=== PATIENT | female | born 1975 ===

== ENCOUNTER 2016-12-21 14:28 | Emergency (ER) | payer MEDICARE, OTHER ==
[2016-12-21 14:28] VITALS: BMI 27.4
[2016-12-21 14:39] VITALS: BP 108/47; PULSE 85; RESP 18; TEMP 97.8; O2SAT 100
[2016-12-21] MEDS ORDERED: Sodium Chloride 0.9% 1,000 ML IV STA (15:13)
--- NOTE | 2016-12-21 15:25 | ED PDOC ---
HPI: Abdomen Time Seen by Provider: 12/21/16 14:43 Chief Complaint (Nursing): Abdominal Pain Chief Complaint (Provider): Abdominal Pain History Per: Patient History/Exam Limitations: no limitations Onset/Duration Of Symptoms: Days (approximately 3-4 days) Outside of [place] travel?: No Current Symptoms Are (Timing): Still Present Severity: Moderate Location Of Pain/Discomfort: Diffuse Associated Symptoms: Chills, Nausea, Urinary Symptoms (dysuria and urinary frequency), Other (b/l knee pain and headache). denies: Fever, Vomiting, Back Pain Additional Complaint(s): Samantha Barajas is a 41 year old female, with a past medical history of urinary tract infections, who presents to the emergency department with diffuse abdominal pain, that the patient has been experiencing for approximately 3-4 days. Patient reports that she fell yesterday, landing on both of her knees, which she believes may have caused an injury. She states that she has not taken any medications for her symptoms to alleviate the pain. Associated nausea, dysuria, urinary frequency, chills, and a headache are currently present. Denies a fever, vomiting, or back pain. Of note, patient is allergic to Penicillin. PMD: Dr. Henao Past Medical History Reviewed: Historical Data, Nursing Documentation, Vital Signs Vital Signs: Last Vital Signs Temp 97.8 F 12/21/16 14:35 Pulse 85 12/21/16 14:35 Resp 18 12/21/16 14:35 BP 108/47 L 12/21/16 14:35 Pulse Ox 100 12/21/16 15:47 - Medical History PMH: Arthritis, Rheumatoid Arthritis Other PMH: Urinary Tract Infection - Surgical History Surgical History: (x3) Other surgeries: Ankle Surgery, L Hip Replacement - Family History Family History: States: No Known Family Hx - Social History Current smoker - smoking cessation education provided: No Ex-Smoker (has not smoked in the last 12 months): No Alcohol: Occasional - Immunization History Hx Tetanus Toxoid Vaccination: No Hx Influenza Vaccination: Yes Hx Pneumococcal Vaccination: No - Home Medications Home Medications: Ambulatory Orders Medication Instructions Recorded Hydroxychloroquine Sulfate 200 mg PO BID 04/05/16 [Plaquenil] Ciprofloxacin HCl [Cipro] 500 mg PO BID #14 tab 07/19/16 Naproxen [Naprosyn] 500 mg PO Q12 PRN #14 tablet 07/19/16 Nitrofurantoin Macrocrystals 100 mg PO BID #20 tab 10/09/16 [Macrobid] Phenazopyridine HCl [Pyridium] 100 mg PO TID #9 tab 12/21/16 Sulfamethoxazole/Trimethoprim 1 tab PO BID #6 tab 12/21/16 [Bactrim DS 800 mg-160 mg] - Allergies Allergies/Adverse Reactions: Allergies Allergy/AdvReac Type Severity Reaction Status Date / Time amoxicillin trihydrate AdvReac RASH Verified 09/04/16 14:05 [From Augmentin] potassium clavulanate AdvReac RASH Verified 09/04/16 14:05 [From Augmentin] Review of Systems ROS Statement: Except As Marked, All Systems Reviewed And Found Negative Constitutional: Positive for: Chills. Negative for: Fever Gastrointestinal: Positive for: Nausea, Abdominal Pain. Negative for: Vomiting Genitourinary Female: Positive for: Dysuria, Frequency Musculoskeletal: Positive for: Leg Pain (b/l knee pain). Negative for: Back Pain Neurological: Positive for: Headache Physical Exam - Reviewed Nursing Documentation Reviewed: Yes Vital Signs Reviewed: Yes - Physical Exam Appears: Positive for: Non-toxic, No Acute Distress Head Exam: Positive for: ATRAUMATIC, NORMOCEPHALIC Skin: Positive for: Normal Color, Warm, Dry Eye Exam: Positive for: Normal appearance, EOMI ENT: Positive for: Normal ENT Inspection, Other (moist mucous membranes). Negative for: Pharyngeal Erythema, Tonsillar Exudate Neck: Positive for: Normal, Painless ROM Cardiovascular/Chest: Positive for: Regular Rate, Rhythm. Negative for: Murmur Respiratory: Positive for: Normal Breath Sounds. Negative for: Respiratory Distress Gastrointestinal/Abdominal: Positive for: Normal Exam, Soft, Tenderness ( diffuse abdominal tenderness bilaterally). Negative for: Mass, Guarding, Rebound Extremity: Positive for: Normal ROM (full range of motion of knees), Other (b/l knee pain w/ mild erythematous symptoms in insertion of patellar tendors) Neurologic/Psych: Positive for: Alert, Oriented - Laboratory Results Result Diagrams: 12/21/16 16:00 - ECG O2 Sat by Pulse Oximetry: 100 (RA) Pulse Ox Interpretation: Normal Medical Decision Making Medical Decision Makin:43 Initial Impression: Abdominal pain r/o UTI and knee pain contusions Initial Plan: * Knee X-Ray * CBC * CMP * Urine * Urinalysis * Sodium Chloride 0.9% 1,000 ml IV at 1,000 mls/hr * Toradol 30 mg IVP * Reevaluation Scribe Attestation: Documented by Manav Pinto, acting as a scribe for Charla Joshua MD. Provider Scribe Attestation: All medical record entries made by the Scribe were at my direction and personally dictated by me. I have reviewed the chart and agree that the record accurately reflects my personal performance of the history, physical exam, medical decision making, and the department course for this patient. I have also personally directed, reviewed, and agree with the discharge instructions and disposition. Disposition - Clinical Impression Clinical Impression: Dysuria - Patient ED Disposition Is Patient to be Admitted: No Doctor Will See Patient In The: Office Counseled Patient/Family Regarding: Diagnosis, Need For Followup, Rx Given - Disposition Referrals: Earlene Fernandes MD [Family Provider] - Disposition: Routine/Home Disposition Time: 16:47 Condition: STABLE Prescriptions: Phenazopyridine HCl [Pyridium] 100 mg PO TID #9 tab Sulfamethoxazole/Trimethoprim [Bactrim DS 800 mg-160 mg] 1 tab PO BID #6 tab Instructions: Dysuria (ED), Knee Pain (ED) - POA Present On Arrival: Falls Or Trauma
[2016-12-21 15:53] LABS: RBC URINE 7 /hpf (0-3); URINE BACTERIA OCC (<OCC); URINE BILIRUBIN NEGATIVE (NEGATIVE); URINE BLOOD NEGATIVE (NEGATIVE); URINE COLOR YELLOW (YELLOW); URINE GLUCOSE (UA) NEG (Normal); URINE KETONE TRACE mg/dL (NEGATIVE); URINE LEUKOCYTE ESTERASE NEG Leu/uL (Negative); URINE PROTEIN NEGATIVE (NEGATIVE); URINE UROBILINOGEN 0.2-1.0 mg/dL (0.2-1.0); WBC URINE 1 /hpf (0-5)
[2016-12-21 16:10] LABS: BASO # 0.1 K/uL (0.0-0.2); EOS # 0.1 K/uL (0.0-0.7); EOS % 2.2 % (0.0-4.0); HEMATOCRIT 37.7 % (34.0-47.0); LYMPH # 1.6 K/uL (1.0-4.3); LYMPH % 27.7 % (20.0-40.0); MEAN CELL VOLUME 96.3 fl (81.0-99.0); MEAN CORPUSCULAR HEMOGLOBIN 33.4 pg (27.0-31.0); MEAN CORPUSCULAR HGB CONC 34.6 g/dL (33.0-37.0); MEAN PLATELET VOLUME 8.5 fl (7.2-11.7); MONO # 0.3 K/uL (0.0-0.8); MONO % 5.7 % (0.0-10.0); NEUT # 3.6 K/uL (1.8-7.0); NEUT % 63.4 % (50.0-75.0); NRBC % 0.1 % (0.0-0.0); RED CELL DISTRIBUTION WIDTH 12.7 % (11.5-14.5); WHITE BLOOD COUNT 5.7 K/uL (4.8-10.8)
[2016-12-21 16:42] LABS: ALB/GLOB RATIO 1.3 (1.0-2.1); ALKALINE PHOSPHATASE 71 U/L (38-126); ALT/SGPT 33 U/L (9-52); AST/SGOT 31 U/L (14-36); BILIRUBIN,TOTAL 1.9 mg/dl (0.2-1.3); BLOOD UREA NITROGEN 14 mg/dl (7-17); CALCIUM 9.4 mg/dL (8.4-10.2); CARBON DIOXIDE 26 mmol/L (22-30); CHLORIDE 104 mmol/L (98-107); GFR AFRICAN-AMERICAN > 60; GLUCOSE,RANDOM 93 mg/dL (65-105); POTASSIUM 3.6 MMOL/L (3.6-5.0); SODIUM 141 mmol/l (132-148); TOTAL PROTEIN 8.1 G/DL (6.3-8.2)
--- NOTE | 2016-12-21 18:20 | RAD ---
PROCEDURE: Bilateral Knee Radiographs dated 12/21/2016. AP lateral and sunrise views of the left and right knees performed. HISTORY: Status post fall yesterday FINDINGS: Right knee findings: The current study reveals no evidence of acute displaced fracture nor dislocation. The osseous structures intact. . No cortical destructive changes. There is mild medial joint space narrowing with small marginal medial osteophyte formation. Slight to the spurring of the tibial spines Tiny early marginal lateral osteophyte formation. . Small posterior patellar osteophytes also noted. No significant joint effusion. Left knee findings: No acute displaced fracture nor dislocation. Osseous structures intact. Joint space is relatively preserved. No significant joint effusion. Impression: No evidence of acute displaced fracture nor dislocation. Mild DJD right knee.
== END 2016-12-21 17:05 | disposition home or self-care (01) ==
LOC: H.ER 14:28
DX: N39.0 Urinary tract infection, site not specified (principal); R30.0 Dysuria; R11.0 Nausea; Z88.0 Allergy status to penicillin; Z96.642 Presence of left artificial hip joint; M06.9 Rheumatoid arthritis, unspecified; M25.569 Pain in unspecified knee; R51 Headache
CPT/HCPCS: 73562; 80053; 81003; 81025; 85025; 96361; 96374; 99283; J1885; J7040

== ENCOUNTER 2017-09-13 11:40 | Emergency (ER) | payer MEDICARE, OTHER ==
[2017-09-13 12:47] VITALS: BMI 23.8
[2017-09-13] MEDS ORDERED: Sodium Chloride 0.9% 1,000 ML IV STA (12:48)
--- NOTE | 2017-09-13 12:58 | ED PDOC ---
HPI: General Adult Time Seen by Provider: 09/13/17 12:23 Chief Complaint (Provider): Generalized malaise, weakness, abdominal pain History Per: Patient History/Exam Limitations: no limitations Onset/Duration Of Symptoms: Days Have you had recent travel within the past 21 days to any of the following countries: [place], [place], [place] or [place]?: No Current Symptoms Are (Timing): Still Present Additional History Per: Patient Additional Complaint(s): 42yo female with history of lupus, arthritis, hypercholesterolemia, presents to ED for evaluation of abdominal pain, bodyaches, cough, shortness of breath, congestion for the past 3 days. Patient reports abdominal pain is diffuse and states she has pressure-like pain upon urination; denies any hematuria or burning sesnations. She also reports a b/l chest pain starting yesterday after doing a lot of cleaning using her hands; states for the past 2 days she has been cleaning surfaces and feels her chest pain may be related to this. She also reports feeling weak and dizzy but denies any headache, vision changes. She denies any leg pain, numbness, hormonal treatments or long distance travels. No other complaints. PCP: Dr. Henao Past Medical History Reviewed: Historical Data, Nursing Documentation, Vital Signs Vital Signs: Last Vital Signs Temp 98.3 F 09/13/17 11:58 Pulse 80 09/13/17 13:27 Resp 20 09/13/17 11:58 BP 95/71 L 09/13/17 11:58 Pulse Ox 97 09/13/17 13:02 - Medical History PMH: Arthritis, Hypercholesterolemia, Rheumatoid Arthritis - Surgical History Surgical History: (x3) - Family History Family History: States: Unknown Family Hx - Social History Current smoker - smoking cessation education provided: No Alcohol: None Drugs: Denies - Immunization History Hx Tetanus Toxoid Vaccination: No Hx Influenza Vaccination: Yes Hx Pneumococcal Vaccination: No - Home Medications Home Medications: Ambulatory Orders Medication Instructions Recorded Hydroxychloroquine Sulfate 200 mg PO BID 04/05/16 [Plaquenil] Benzonatate [Tessalon Perles] 100 mg PO BID PRN 5 Days sgl 09/13/17 Ibuprofen [Motrin] 600 mg PO TID 7 Days tab 09/13/17 Nitrofurantoin Macrocrystals 100 mg PO BID #10 cap 09/13/17 [Macrobid] - Allergies Allergies/Adverse Reactions: Allergies Allergy/AdvReac Type Severity Reaction Status Date / Time amoxicillin trihydrate AdvReac RASH Verified 09/04/16 14:05 [From Augmentin] potassium clavulanate AdvReac RASH Verified 09/04/16 14:05 [From Augmentin] Review of Systems ROS Statement: Except As Marked, All Systems Reviewed And Found Negative Constitutional: Positive for: Weakness, Malaise Eyes: Negative for: Vision Change ENT: Positive for: Nose Congestion Cardiovascular: Positive for: Chest Pain Respiratory: Positive for: Cough, Shortness of Breath, Sputum Gastrointestinal: Positive for: Abdominal Pain. Negative for: Nausea, Vomiting , Diarrhea Genitourinary Female: Negative for: Dysuria, Hematuria Neurological: Positive for: Dizziness. Negative for: Headache Physical Exam - Reviewed Nursing Documentation Reviewed: Yes Vital Signs Reviewed: Yes - Physical Exam Appears: Positive for: Non-toxic, No Acute Distress Head Exam: Positive for: ATRAUMATIC, NORMAL INSPECTION, NORMOCEPHALIC Skin: Positive for: Normal Color, Warm, Dry Eye Exam: Positive for: Normal appearance, EOMI, PERRL ENT: Positive for: Nasal Congestion. Negative for: Sinus Pain/Drainage, Pharyngeal Erythema Neck: Positive for: Normal, Painless ROM, Supple Cardiovascular/Chest: Positive for: Regular Rate, Rhythm. Negative for: Chest Non Tender (reproducibe bilateral chest-wall tednerness) Respiratory: Positive for: Normal Breath Sounds. Negative for: Wheezing Gastrointestinal/Abdominal: Positive for: Normal Exam, Bowel Sounds, Soft, Tenderness (diffuse mild tenderness) Back: Positive for: Normal Inspection. Negative for: L CVA Tenderness, R CVA Tenderness Extremity: Positive for: Normal ROM. 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 Negative for: Motor/Sensory Deficits, Aphasia, Facial Droop - Laboratory Results Result Diagrams: 09/13/17 12:10 09/13/17 12:10 Interpretation Of Abn Labs: urine wbc - ECG ECG: Positive for: Interpreted By Me ECG Rhythm: Positive for: Normal QRS, Normal ST Segment, Sinus Rhythm O2 Sat by Pulse Oximetry: 97 (RA) Pulse Ox Interpretation: Normal - Radiology X-Ray: Interpreted by Me, Viewed By Me X-Ray Interpretation: No Acute Disease - CT Scan/US ct Other Rad Studies (CT/US): Read By Radiologist Other Rad Interpretation: no acute - Progress ED Course And Treament: 1515: Stable. AAOx3. Pain free. Tolerated po. FU with pcp. Medical Decision Making Medical Decision Making: Impression: Flu-like symptoms, rule out UTI Plan: -- Chest x-ray -- Urinalysis -- CT Head w/o contrast -- Pepcid 20mg IVP -- Toradol 30mg IM -- IV Fluids -- Rapid flu Reassess Scribe Attestation: Documented by Paola Gaitan acting as a scribe for Misha Perkins MD. Provider Attestation: All medical record entries made by the Scribe were at my direction and personally dictated by me. I have reviewed the chart and agree that the record accurately reflects my personal performance of the history, physical exam, medical decision making, and the department course for this patient. I have also personally directed, reviewed, and agree with the discharge instructions and disposition. Disposition - Clinical Impression Clinical Impression: UTI (urinary tract infection), Dizziness, URI (upper respiratory infection) - Patient ED Disposition Is Patient to be Admitted: No Counseled Patient/Family Regarding: Studies Performed, Diagnosis, Need For Followup, Rx Given - Disposition [facility]errals: [facility] - 09/16/17 Disposition: Routine/Home Disposition Time: 15:15 Condition: STABLE Additional Instructions: Return if not better in 3 days. Prescriptions: Benzonatate [Tessalon Perles] 100 mg PO BID PRN 5 Days sgl PRN Reason: Cough Ibuprofen [Motrin] 600 mg PO TID 7 Days tab Nitrofurantoin Macrocrystals [Macrobid] 100 mg PO BID #10 cap Instructions: Upper Respiratory Infection (ED), Urinary Tract Infection in Women (ED), Dizziness (ED)
[2017-09-13 13:20] LABS: BASO % 0.4 % (0.0-2.0); EOS # 0.2 K/uL (0.0-0.7); EOS % 1.7 % (0.0-4.0); HEMOGLOBIN 13.4 g/dL (12.0-16.0); LYMPH # 1.8 K/uL (1.0-4.3); LYMPH % 19.1 % (20.0-40.0); MEAN CELL VOLUME 95.2 fl (81.0-99.0); MEAN CORPUSCULAR HEMOGLOBIN 33.6 pg (27.0-31.0); MEAN CORPUSCULAR HGB CONC 35.3 g/dL (33.0-37.0); MEAN PLATELET VOLUME 8.1 fl (7.2-11.7); MONO # 0.5 K/uL (0.0-0.8); NEUT % 73.8 % (50.0-75.0); RBC 3.98 Mil/uL (3.80-5.20); RED CELL DISTRIBUTION WIDTH 12.9 % (11.5-14.5); WHITE BLOOD COUNT 9.5 K/uL (4.8-10.8)
[2017-09-13 13:26] LABS: RENAL EPITHELIAL 3 /hpf (0-3); SQUAMOUS EPITHIAL 5 /hpf (0-5); URINE BACTERIA MANY (<OCC); URINE BILIRUBIN NEGATIVE (NEGATIVE); URINE BLOOD MODERATE (NEGATIVE); URINE CLARITY CLOUDY (Clear); URINE COLOR YELLOW (YELLOW); URINE GLUCOSE (UA) NEG (Normal); URINE LEUKOCYTE ESTERASE LARGE Leu/uL (Negative); URINE NITRATE POSITIVE (NEGATIVE); URINE PROTEIN 100 mg/dL (NEGATIVE); URINE UROBILINOGEN 0.2-1.0 mg/dL (0.2-1.0); WBC CLUMPS FEW /hpf
[2017-09-13 13:32] LABS: ALB/GLOB RATIO 1.1 (1.0-2.1); ALBUMIN 4.3 g/dL (3.5-5.0); ALT/SGPT 46 U/L (9-52); AST/SGOT 36 U/L (14-36); BLOOD UREA NITROGEN 14 mg/dl (7-17); CALCIUM 9.6 mg/dL (8.4-10.2); GFR AFRICAN-AMERICAN > 60; GFR NON-AFRICAN AMERICAN > 60; LIPASE 78 U/L (23-300)
[2017-09-13 13:47] LABS: PARTIAL THROMBOPLASTIN TIME 29.9 Seconds (25.6-37.1)
--- NOTE | 2017-09-13 14:52 | RAD ---
HISTORY: Dyspnea COMPARISON: 09/04/2016 TECHNIQUE: Chest PA and lateral FINDINGS: LUNGS: No active pulmonary disease. PLEURA: No significant pleural effusion identified. No pneumothorax apparent. CARDIOVASCULAR: No radiographic findings to suggest acute or significant cardiovascular disease. OSSEOUS STRUCTURES: No significant abnormalities. VISUALIZED UPPER ABDOMEN: Normal. OTHER FINDINGS: None. IMPRESSION: No active disease. No significant interval change compared to the prior examination(s). Concordant results with the preliminary interpretation rendered by the emergency department physician procedure.
--- NOTE | 2017-09-13 14:53 | CT ---
PROCEDURE: CT scan brain dated 09/13/2017 HISTORY: light-headed COMPARISON: None available. TECHNIQUE: Axial computed tomography images were obtained through the head/brain without intravenous contrast. Radiation dose: Total exam DLP = mGy-cm. This CT exam was performed using one or more of the following dose reduction techniques: Automated exposure control, adjustment of the mA and/or kV according to patient size, and/or use of iterative reconstruction technique. FINDINGS: HEMORRHAGE: No acute parenchymal, subarachnoid or extra-axial hemorrhage. BRAIN: No evidence large acute infarct. No obvious parenchymal nor extra-axial masses or collections seen on this noncontrast study Ventricular and sulcal size within range of normal for this patient's stated age. VENTRICLES: No obstructive hydrocephalus. CALVARIUM: Calvarium is intact. PARANASAL SINUSES: Unremarkable as visualized. No significant inflammatory changes. MASTOID AIR CELLS: Unremarkable as visualized. No inflammatory changes. OTHER FINDINGS: None. IMPRESSION: No acute intracranial hemorrhage.
[2017-09-13 16:00] VITALS: BP 114/78; PULSE 78; RESP 18; TEMP 98.2; O2SAT 99
--- NOTE | 2017-09-14 09:39 | CARD ---
APPROVED REPORT EKG Measurement Heart [id number] <Conclusion> Normal sinus rhythm Normal ECG
== END 2017-09-13 16:02 | disposition home or self-care (01) ==
LOC: H.ER 11:40
DX: J06.9 Acute upper respiratory infection, unspecified (principal); N39.0 Urinary tract infection, site not specified; E78.00 Pure hypercholesterolemia, unspecified; M06.9 Rheumatoid arthritis, unspecified; M32.9 Systemic lupus erythematosus, unspecified; Z88.0 Allergy status to penicillin
CPT/HCPCS: 70450; 71046; 80053; 81003; 81025; 83690; 84484; 85025; 85610; 85730; 87086; 87181; 87804; 93005; 96374; 96375; 99283; J1885; J7040

== ENCOUNTER 2017-09-26 21:45 | Emergency (ER) | payer MEDICARE, OTHER ==
[2017-09-26 21:45] VITALS: BMI 23.8
[2017-09-26 21:59] VITALS: BP 122/79; PULSE 96; RESP 18; TEMP 99.1; O2SAT 97
[2017-09-26] MEDS ORDERED: Albuterol 0.083% Inhal Sol (2.5 mg/3 mL) UD INH STA (22:02)
[2017-09-26] MEDS ORDERED: Albuterol-Ipratrop 3 mg / 0.5 (3 ml) UD INH STA ×2 (22:02→23:09)
--- NOTE | 2017-09-26 22:14 | ED PDOC ---
HPI: CCC, URI, Sore Throat Time Seen by Provider: 09/26/17 22:01 Chief Complaint (Nursing): Cough, Cold, Congestion Chief Complaint (Provider): Cough History Per: Patient History/Exam Limitations: no limitations Onset/Duration Of Symptoms: Days (x over 1 month) Current Symptoms Are (Timing): Still Present Additional Complaint(s): Patient is a 42 year old female presenting to the ER complaining of a cough since the end of Aug 2017. States cough is productive of clear phlegm. Seen here on 09/13 for it along with chest pain, and was diagnosed with a URI. Denies chest pain since then but states the cough persists. Saw parts cleaner on 09/24 for the same cough and was given Mucinex, Breo ellipta inhaler, and a z-pack which she will finish tomorrow. Persistence of cough prompted todays visit. No fever , nausea, vomiting, headache, abdominal pain, chest pain, palpitations, or lower leg swelling. LMP is now. PMD: Dr. Fernandes Past Medical History Reviewed: Historical Data, Nursing Documentation, Vital Signs Vital Signs: Last Vital Signs Temp 99.1 F 09/26/17 21:56 Pulse 96 H 09/26/17 21:56 Resp 18 09/26/17 21:56 BP 122/79 09/26/17 21:56 Pulse Ox 97 09/27/17 00:30 - Medical History PMH: Arthritis, Hypercholesterolemia, Rheumatoid Arthritis Other PMH: Lupus, carpal tunnel syndrome, seasonal allergies - Surgical History Surgical History: (x3) - Family History Family History: States: Unknown Family Hx - Social History Current smoker - smoking cessation education provided: No Alcohol: None Drugs: Denies - Immunization History Hx Tetanus Toxoid Vaccination: No Hx Influenza Vaccination: Yes Hx Pneumococcal Vaccination: No - Home Medications Home Medications: Ambulatory Orders Medication Instructions Recorded Hydroxychloroquine Sulfate 200 mg PO BID 04/05/16 [Plaquenil] Benzonatate [Tessalon Perles] 100 mg PO BID PRN 5 Days sgl 09/13/17 Ibuprofen [Motrin] 600 mg PO TID 7 Days tab 09/13/17 Nitrofurantoin Macrocrystals 100 mg PO BID #10 cap 09/13/17 [Macrobid] Promethazine/Codeine 5 ml PO TID #120 ml 09/26/17 [Phenergan/Codeine Oral Syrup] - Allergies Allergies/Adverse Reactions: Allergies Allergy/AdvReac Type Severity Reaction Status Date / Time amoxicillin trihydrate AdvReac RASH Verified 09/04/16 14:05 [From Augmentin] potassium clavulanate AdvReac RASH Verified 09/04/16 14:05 [From Augmentin] Review of Systems ROS Statement: Except As Marked, All Systems Reviewed And Found Negative Constitutional: Negative for: Fever, Chills Cardiovascular: Negative for: Chest Pain, Palpitations Respiratory: Positive for: Cough, Shortness of Breath, Sputum Gastrointestinal: Negative for: Nausea, Vomiting, Abdominal Pain Musculoskeletal: Negative for: Other (leg swelling) Physical Exam - Reviewed Nursing Documentation Reviewed: Yes Vital Signs Reviewed: Yes - Physical Exam Appears: Positive for: Non-toxic, No Acute Distress Head Exam: Positive for: ATRAUMATIC, NORMAL INSPECTION, NORMOCEPHALIC Skin: Positive for: Normal Color, Warm, Dry Eye Exam: Positive for: EOMI, Normal appearance, PERRL Neck: Positive for: Normal, Painless ROM, Supple Cardiovascular/Chest: Positive for: Regular Rate, Rhythm. Negative for: Murmur Respiratory: Positive for: Normal Breath Sounds (equal bilaterally, lungs clear to auscultation), Other (speaking in broken sentences due to cough). Negative for: Rales, Rhonchi, Wheezing Gastrointestinal/Abdominal: Positive for: Normal Exam, Soft. Negative for: Tenderness Extremity: Positive for: Normal ROM. Negative for: Tenderness, Deformity, Swelling Neurologic/Psych: Positive for: Alert, Oriented (x3) - ECG O2 Sat by Pulse Oximetry: 97 (RA) Pulse Ox Interpretation: Normal Medical Decision Making Medical Decision Making: Clinical Impression: Cough Time: 22:02 Plan: --Albuterol treatment --Duoneb treatment x2 --Peak Flow pre/post treatment --Chest X-Ray --Reevaluation CXR reviewed: NAD. [id number] Dr France at bedside per request of patient to also be evaluated by MD. Patient treated with Decadron 10mg IM. Agreeable to plan for discharge and outpatient follow up with ENT. Return to ED with any new or worsening symptoms. Scribe Attestation: Documented by Rossy Staley, acting as a scribe for Patt Snell PA-C Provider Scribe Attestation: All medical record entries made by the Scribe were at my direction and personally dictated by me. I have reviewed the chart and agree that the record accurately reflects my personal performance of the history, physical exam, medical decision making, and the department course for this patient. I have also personally directed, reviewed, and agree with the discharge instructions and disposition. Disposition - Clinical Impression Clinical Impression: Cough in adult, Cough, Bronchitis - Patient ED Disposition Is Patient to be Admitted: No Discussed With Dr.: Arnulfo France III Doctor Will See Patient In The: ED (Diagnostics discussed in detail with patient.) Counseled Patient/Family Regarding: Diagnosis, Need For Followup, Rx Given - Disposition Referrals: Jett Taylor MD [Staff Provider] - Disposition: Routine/Home Disposition Time: 23:47 Condition: STABLE Prescriptions: Promethazine/Codeine [Phenergan/Codeine Oral Syrup] 5 ml PO TID #120 ml Instructions: Cough in Adults, Acute Bronchitis Forms: [facility] ([place]) Print Language: WOLOF
[2017-09-26] MEDS ORDERED: Dexamethasone 4 mg/1 ml IM ONE (23:47)
[2017-09-27] MEDS ORDERED: Dexamethasone 4 mg/1 ml ONE (00:02)
--- NOTE | 2017-09-27 08:53 | RAD ---
HISTORY: cough COMPARISON: Chest radiograph dated 09/13/2017 TECHNIQUE: Chest PA and lateral FINDINGS: LUNGS: No active pulmonary disease. PLEURA: No significant pleural effusion identified. No pneumothorax apparent. CARDIOVASCULAR: Stable bilateral hilar prominence. Cardiomediastinal silhouette otherwise within normal limits. OSSEOUS STRUCTURES: No significant abnormalities. VISUALIZED UPPER ABDOMEN: Normal. OTHER FINDINGS: None. IMPRESSION: No active disease.
== END 2017-09-27 00:07 | disposition home or self-care (01) ==
LOC: H.ER 21:45
DX: J40 Bronchitis, not specified as acute or chronic (principal)
CPT/HCPCS: 71046; 81025; 94640; 96372; 99282; J1100

== ENCOUNTER 2018-08-04 15:05 | Emergency (ER) | payer MEDICARE, OTHER ==
[2018-08-04 15:05] VITALS: BMI 23.8
[2018-08-04 15:17] VITALS: RESP 18
--- NOTE | 2018-08-04 15:29 | ED PDOC ---
HPI: Abdomen Time Seen by Provider: 08/04/18 15:18 Chief Complaint (Nursing): Abdominal Pain History Per: Patient Onset/Duration Of Symptoms: Days (2) Current Symptoms Are (Timing): Intermittent Episodes Severity: Mild Location Of Pain/Discomfort: RLQ, LLQ, Suprapubic Quality Of Discomfort: Cramping Associated Symptoms: Nausea. denies: Fever, Vomiting, Diarrhea, Urinary Symptoms Exacerbating Factors: None Alleviating Factors: None Additional Complaint(s): Crampy lower abd pain assoc with vaginal bleeding. LNMP 07/14. Recently under stress due to father passing away. Also c/o chest pain/tightness. Non-radiating. Worse on inspiration. Abnormal Vaginal Bleeding: Yes Past Medical History Vital Signs: Last Vital Signs Temp 98.0 F 08/04/18 15:15 Pulse 91 H 08/04/18 15:15 Resp 18 08/04/18 15:15 BP 130/75 08/04/18 15:15 Pulse Ox 98 08/04/18 15:15 - Medical History PMH: Arthritis, Hypercholesterolemia, Rheumatoid Arthritis - Surgical History Surgical History: (x3) - Family History Family History: States: Unknown Family Hx - Immunization History Hx Tetanus Toxoid Vaccination: No Hx Influenza Vaccination: Yes Hx Pneumococcal Vaccination: No - Home Medications Home Medications: Ambulatory Orders Medication Instructions Recorded Hydroxychloroquine Sulfate 200 mg PO BID 04/05/16 [Plaquenil] Benzonatate [Tessalon Perles] 100 mg PO BID PRN 5 Days sgl 09/13/17 Ibuprofen [Motrin] 600 mg PO TID 7 Days tab 09/13/17 Nitrofurantoin Macrocrystals 100 mg PO BID #10 cap 09/13/17 [Macrobid] Promethazine/Codeine 5 ml PO TID #120 ml 09/26/17 [Phenergan/Codeine Oral Syrup] Naproxen [Naprosyn] 500 mg PO Q12H #20 tab 08/04/18 - Allergies Allergies/Adverse Reactions: Allergies Allergy/AdvReac Type Severity Reaction Status Date / Time amoxicillin trihydrate AdvReac RASH Verified 09/04/16 14:05 [From Augmentin] potassium clavulanate AdvReac RASH Verified 09/04/16 14:05 [From Augmentin] Review of Systems ROS Statement: Except As Marked, All Systems Reviewed And Found Negative Cardiovascular: Positive for: Chest Pain Gastrointestinal: Positive for: Abdominal Pain Genitourinary Female: Positive for: Vaginal Bleeding. Negative for: Dysuria, Frequency Physical Exam - Reviewed Nursing Documentation Reviewed: Yes Vital Signs Reviewed: Yes - Physical Exam Appears: Positive for: Non-toxic, No Acute Distress Head Exam: Positive for: ATRAUMATIC, NORMAL INSPECTION, NORMOCEPHALIC Skin: Positive for: Normal Color, Warm, DRY Eye Exam: Positive for: EOMI, Normal appearance, PERRL ENT: Positive for: Normal ENT Inspection Neck: Positive for: Normal, Painless ROM Cardiovascular/Chest: Positive for: Regular Rate, Rhythm Respiratory: Positive for: CNT, Normal Breath Sounds Gastrointestinal/Abdominal: Positive for: Normal Exam, Soft. Negative for: Tenderness Back: Positive for: Normal Inspection Extremity: Positive for: Normal ROM Neurologic/Psych: Positive for: Alert, Oriented - Laboratory Results Result Diagrams: 08/04/18 16:32 08/04/18 16:32 - ECG O2 Sat by Pulse Oximetry: 98 Disposition - Clinical Impression Clinical Impression: Menorrhagia - Patient ED Disposition Is Patient to be Admitted: No Counseled Patient/Family Regarding: Studies Performed, Diagnosis, Need For Followup, Rx Given - Disposition Referrals: [facility] [Outside] Disposition: Routine/Home Disposition Time: 18:27 Condition: FAIR Prescriptions: Naproxen [Naprosyn] 500 mg PO Q12H #20 tab Instructions: Absent or Irregular Periods Forms: [employer] ([place])
[2018-08-04 16:40] LABS: BASO % 0.8 % (0.0-2.0); EOS # 0.1 K/uL (0.0-0.7); EOS % 2.8 % (0.0-4.0); LYMPH # 1.6 K/uL (1.0-4.3); LYMPH % 31.1 % (20.0-40.0); MEAN CELL VOLUME 96.1 fl (81.0-99.0); MEAN CORPUSCULAR HEMOGLOBIN 33.3 pg (27.0-31.0); MEAN CORPUSCULAR HGB CONC 34.6 g/dL (33.0-37.0); MONO # 0.2 K/uL (0.0-0.8); MONO % 4.6 % (0.0-10.0); NEUT # 3.2 K/uL (1.8-7.0); NEUT % 60.7 % (50.0-75.0); NRBC % 0.1 % (0.0-0.0); RBC 4.2 Mil/uL (3.80-5.20); RED CELL DISTRIBUTION WIDTH 12.6 % (11.5-14.5); WHITE BLOOD COUNT 5.3 K/uL (4.8-10.8)
[2018-08-04 16:49] LABS: ALB/GLOB RATIO 1.1 (1.0-2.1); ALBUMIN 4.6 g/dL (3.5-5.0); BLOOD UREA NITROGEN 15 mg/dl (7-17); CALCIUM 9.5 mg/dL (8.4-10.2); GFR NON-AFRICAN AMERICAN > 60
[2018-08-04 17:32] LABS: ALT/SGPT 27 U/L (9-52); AST/SGOT 30 U/L (14-36)
[2018-08-04 18:51] VITALS: BP 129/68; PULSE 85; TEMP 98.1; O2SAT 99
== END 2018-08-04 18:45 | disposition home or self-care (01) ==
LOC: H.ER 15:05
DX: N92.0 Excessive and frequent menstruation with regular cycle (principal); Z88.0 Allergy status to penicillin

== ENCOUNTER 2018-12-15 15:26 | Emergency (ER) | payer MEDICARE, OTHER ==
[2018-12-15 15:26] VITALS: BMI 23.8
[2018-12-15 15:51] VITALS: RESP 18; O2SAT 99
[2018-12-15 17:25] LABS: SQUAMOUS EPITHIAL 8 /hpf (0-5); URINE BACTERIA OCC (<OCC); URINE BILIRUBIN NEGATIVE (NEGATIVE); URINE BLOOD NEGATIVE (NEGATIVE); URINE CLARITY CLOUDY (Clear); URINE COLOR YELLOW (YELLOW); URINE GLUCOSE (UA) NEG (NEGATIVE); URINE LEUKOCYTE ESTERASE NEG Leu/uL (Negative); URINE PROTEIN 30 mg/dL (NEGATIVE); URINE UROBILINOGEN 0.2-1.0 mg/dL (0.2-1.0)
[2018-12-15 17:28] LABS: BASO % 0.3 % (0.0-2.0); EOS # 0.1 K/uL (0.0-0.7); EOS % 1.8 % (0.0-4.0); HEMOGLOBIN 13.9 g/dL (12.0-16.0); LYMPH % 30.8 % (20.0-40.0); MEAN CELL VOLUME 97.7 fl (81.0-99.0); MEAN CORPUSCULAR HEMOGLOBIN 34.2 pg (27.0-31.0); MEAN PLATELET VOLUME 8.3 fl (7.2-11.7); MONO # 0.4 K/uL (0.0-0.8); MONO % 5.9 % (0.0-10.0); NEUT # 3.9 K/uL (1.8-7.0); NEUT % 61.2 % (50.0-75.0); RBC 4.05 Mil/uL (3.80-5.20); RED CELL DISTRIBUTION WIDTH 12.7 % (11.5-14.5); WHITE BLOOD COUNT 6.3 K/uL (4.8-10.8)
[2018-12-15 17:39] LABS: ALB/GLOB RATIO 1.2 (1.0-2.1); ALBUMIN 4.6 g/dL (3.5-5.0); ALT/SGPT 37 U/L (9-52); AST/SGOT 26 U/L (14-36); BLOOD UREA NITROGEN 15 mg/dl (7-17); CALCIUM 9.9 mg/dL (8.4-10.2); GFR NON-AFRICAN AMERICAN > 60; LIPASE 94 U/L (23-300)
--- NOTE | 2018-12-15 19:55 | ED PDOC ---
HPI: General Adult Time Seen by Provider: 12/15/18 16:32 Chief Complaint (Nursing): Back Pain Chief Complaint (Provider): BACK PAIN/LEFT LOWER ABDOMINAL TENDERNESS History Per: Patient (43 Y/O FEMALE H/O LUPUS HERE WITH LLQ ABD PAIN X 2-3 DAYS. NOTES VAGINAL DISCHARGE. NOTES ADDITIONAL LLQ PAIN. DENIES ANY NEW PARTNERS. DENIES ANY DYSURIA. NO FEVERS/CHILLS . PATIENT DENIES H/O BACK PAIN AND NOTES PAIN WORSE WITH SITTING UP X 2 WEEKS. NO H/O FALLS.) Past Medical History Reviewed: Historical Data, Nursing Documentation, Vital Signs Vital Signs: Last Vital Signs Temp 98.6 F 12/15/18 15:50 Pulse 85 12/15/18 15:50 Resp 18 12/15/18 15:50 BP 127/78 12/15/18 15:50 Pulse Ox 99 12/15/18 15:50 Primary Care Provider: FAMILY PROVIDER,NO - Medical History PMH: Arthritis, Hypercholesterolemia, Rheumatoid Arthritis - Surgical History Surgical History: (x3) - Family History Family History: States: Unknown Family Hx - Immunization History Hx Tetanus Toxoid Vaccination: No Hx Influenza Vaccination: Yes Hx Pneumococcal Vaccination: No - Home Medications Home Medications: Ambulatory Orders Medication Instructions Recorded Hydroxychloroquine Sulfate 200 mg PO BID 04/05/16 [Plaquenil] Benzonatate [Tessalon Perles] 100 mg PO BID PRN 5 Days sgl 09/13/17 Ibuprofen [Motrin] 600 mg PO TID 7 Days tab 09/13/17 Nitrofurantoin Macrocrystals 100 mg PO BID #10 cap 09/13/17 [Macrobid] Promethazine/Codeine 5 ml PO TID #120 ml 09/26/17 [Phenergan/Codeine Oral Syrup] Naproxen [Naprosyn] 500 mg PO Q12H #20 tab 08/04/18 - Allergies Allergies/Adverse Reactions: Allergies Allergy/AdvReac Type Severity Reaction Status Date / Time amoxicillin trihydrate AdvReac RASH Verified 12/15/18 15:51 [From Augmentin] potassium clavulanate AdvReac RASH Verified 12/15/18 15:51 [From Augmentin] Review of Systems ROS Statement: Except As Marked, All Systems Reviewed And Found Negative Musculoskeletal: Positive for: Back Pain Physical Exam - Reviewed Nursing Documentation Reviewed: Yes Vital Signs Reviewed: Yes - Physical Exam Appears: Positive for: Well, Non-toxic, No Acute Distress Head Exam: Positive for: ATRAUMATIC, NORMAL INSPECTION, NORMOCEPHALIC Skin: Positive for: Normal Color, Warm, DRY Eye Exam: Positive for: EOMI, Normal appearance, PERRL ENT: Positive for: Normal ENT Inspection Neck: Positive for: Normal, Painless ROM Cardiovascular/Chest: Positive for: Regular Rate, Rhythm Respiratory: Positive for: CNT, Normal Breath Sounds Gastrointestinal/Abdominal: Positive for: Normal Exam, Soft Pelvic Exam: Positive for: Discharge (VAGINAL DISCHARGE NOTED), Tender Adnexa (LEFT ADNEXAL TENDERNESS) Back: Positive for: Normal Inspection, Other (PARALUMBAR TENDERNESS LOWER). Negative for: Vertebral Tenderness Extremity: Positive for: Normal ROM Neurological/Psych: Positive for: Awake, Alert, Normal Tone - Laboratory Results Result Diagrams: 12/15/18 17:05 12/15/18 17:05 Lab Results: Total Bilirubin 0.9 mg/dl (0.2-1.3) 12/15/18 17:05 AST 26 U/L (14-36) 12/15/18 17:05 ALT 37 U/L (9-52) 12/15/18 17:05 Alkaline Phosphatase 64 U/L (38-126) 12/15/18 17:05 Total Protein 8.3 G/DL (6.3-8.2) H 12/15/18 17:05 Albumin 4.6 g/dL (3.5-5.0) 12/15/18 17:05 Globulin 3.7 gm/dL (2.2-3.9) 12/15/18 17:05 Albumin/Globulin Ratio 1.2 (1.0-2.1) 12/15/18 17:05 Lipase 94 U/L (23-300) 12/15/18 17:05 Urine Color Yellow (YELLOW) 12/15/18 17:05 Urine Clarity Cloudy (Clear) 12/15/18 17:05 Urine pH 6.0 (5.0-8.0) 12/15/18 17:05 Ur Specific [place] 1.025 (1.003-1.030) 12/15/18 17:05 Urine Protein 30 mg/dL (NEGATIVE) 12/15/18 17:05 Urine Glucose (UA) Neg mg/dL (NEGATIVE) 12/15/18 17:05 Urine Ketones Negative mg/dL (NEGATIVE) 12/15/18 17:05 Urine Blood Negative (NEGATIVE) 12/15/18 17:05 Urine Nitrate Negative (NEGATIVE) 12/15/18 17:05 Urine Bilirubin Negative (NEGATIVE) 12/15/18 17:05 Urine Urobilinogen 0.2-1.0 mg/dL (0.2-1.0) 12/15/18 17:05 Ur Leukocyte Esterase Neg Brandon/uL (Negative) 12/15/18 17:05 Urine RBC (Auto) 4 /hpf (0-3) H 12/15/18 17:05 Urine Microscopic WBC 1 /hpf (0-5) 12/15/18 17:05 Ur Squamous Epith Cells 8 /hpf (0-5) H 12/15/18 17:05 Urine Bacteria Occ (<OCC) H 12/15/18 17:05 - ECG O2 Sat by Pulse Oximetry: 99 Disposition - Clinical Impression Clinical Impression: Vaginitis, Back pain, Abdominal pain - Patient ED Disposition Is Patient to be Admitted: Transfer of Care - Disposition Disposition: Transfer of Care Disposition Time: 20:00 Condition: FAIR Patient Signed Over To: Paris Stratton Handoff Comments: PENDING US/BERNARDA CHAN
--- NOTE | 2018-12-15 20:22 | ED PDOC ---
- Laboratory Results Result Diagrams: 12/15/18 17:05 12/15/18 17:05 Lab Results: Total Bilirubin 0.9 mg/dl (0.2-1.3) 12/15/18 17:05 AST 26 U/L (14-36) 12/15/18 17:05 ALT 37 U/L (9-52) 12/15/18 17:05 Alkaline Phosphatase 64 U/L (38-126) 12/15/18 17:05 Total Protein 8.3 G/DL (6.3-8.2) H 12/15/18 17:05 Albumin 4.6 g/dL (3.5-5.0) 12/15/18 17:05 Globulin 3.7 gm/dL (2.2-3.9) 12/15/18 17:05 Albumin/Globulin Ratio 1.2 (1.0-2.1) 12/15/18 17:05 Lipase 94 U/L (23-300) 12/15/18 17:05 Urine Color Yellow (YELLOW) 12/15/18 17:05 Urine Clarity Cloudy (Clear) 12/15/18 17:05 Urine pH 6.0 (5.0-8.0) 12/15/18 17:05 Ur Specific [place] 1.025 (1.003-1.030) 12/15/18 17:05 Urine Protein 30 mg/dL (NEGATIVE) 12/15/18 17:05 Urine Glucose (UA) Neg mg/dL (NEGATIVE) 12/15/18 17:05 Urine Ketones Negative mg/dL (NEGATIVE) 12/15/18 17:05 Urine Blood Negative (NEGATIVE) 12/15/18 17:05 Urine Nitrate Negative (NEGATIVE) 12/15/18 17:05 Urine Bilirubin Negative (NEGATIVE) 12/15/18 17:05 Urine Urobilinogen 0.2-1.0 mg/dL (0.2-1.0) 12/15/18 17:05 Ur Leukocyte Esterase Neg Brandon/uL (Negative) 12/15/18 17:05 Urine RBC (Auto) 4 /hpf (0-3) H 12/15/18 17:05 Urine Microscopic WBC 1 /hpf (0-5) 12/15/18 17:05 Ur Squamous Epith Cells 8 /hpf (0-5) H 12/15/18 17:05 Urine Bacteria Occ (<OCC) H 12/15/18 17:05 - ECG O2 Sat by Pulse Oximetry: 99 - Other Rad lspine xray X-Ray: Viewed By Me X-Ray Interpretation: no acute findings - Progress ED Course And Treament: Case endorsed to lyric writer from Lamine PATTERSON pending imaging, re-eval EXAM: US Pelvis, Complete Transabdominal COMPARISON: None provided. CLINICAL HISTORY: LT ADNEXAL TENDERNESS TECHNIQUE: Transvaginal and transabdominal pelvic ultrasound (complete) with image documentation. FINDINGS: ENDOMETRIUM: The endometrium is thickened measuring 1.5 cm in AP dimension. UTERUS/CERVIX: The uterus appears within normal limits measuring approximately 9.6 x 4.6 x 5.3 cm in longitudinal, AP and transverse dimensions respectively. There is iden tified an approximately 2.1 x 1.1 x 2.4 cm solid heterogeneous mass arising from the right anterolateral uterine fundus thought compatible with a uterine fibroid. There is demonstration of a 0.9 x 0.9 x 1.2 cm Nabothian cyst on the cervical os. RIGHT OVARY: Normal Doppler flow. No abnormal mass. LEFT OVARY: Normal Doppler flow. No abnormal mass. No left adnexal abnormality detected. FREE FLUID: No free fluid. IMPRESSION: 1. A 2.1 x 2.4 cm uterine fibroid is seen along the right anterolateral uterine fundus. 2. Slight thickening of the endometrium. 3. A 0.9 x 1.2 cm Nabothian cyst is noted on the cervical os On re-eval, patient still concerned about left lower abdominal/groin pain; CT abd/pelvis ordered to r/out diverticulitis EXAM: CT Abdomen and Pelvis with IV contrast CLINICAL HISTORY: Llq pain TECHNIQUE: Axial computed tomography images of the abdomen and pelvis with intravenous contrast. 688.14 mGy-cm CONTRAST: With; [id number] 95ML COMPARISON: Comparison is made with prior pelvic ultrasound evaluation performed earlier the same date. FINDINGS: LUNG BASES: The lung bases appear clear. No pleural effusions are seen. LIVER: There is hepatomegaly. The liver measured 17.3 cm in the midclavicular line. GALLBLADDER AND BILE DUCTS: The gallbladder appears within normal limits. No radioopaque gallstones are seen. No biliary ductal dilatation is evident. PANCREAS: Unremarkable. SPLEEN: Unremarkable. ADRENAL GLANDS: Unremarkable. KIDNEYS, URETERS, AND BLADDER: The kidneys appear within normal limits. There is no hydronephrosis or hydroureter. No urinary calculi are seen. The urinary bladder appeared normal in size and configuration. STOMACH AND BOWEL: Unremarkable appearance of the stomach. No evidence of bowel obstruction. Mild mucosal wall thickening of the small intestinal tract is noted which contains some fluid in its lumen thought compatible with diffuse enteritis. Infectious or inflammatory etiologies are thought most likely. No evidence suggesting colitis. APPENDIX: No evidence of acute appendicitis on CT examination. PERITONEUM: No free fluid. No free air. LYMPH NODES: No lymphadenopathy is evident. REPRODUCTIVE: Unremarkable as visualized. VASCULATURE: No evidence of abdominal aortic aneurysm. BONES: No aggressive appearing osseous lesion. No acute osseous pathology evident. Streak artifact arises from a total left hip prosthesis. IMPRESSION: 1. Evidence of diffuse enteritis. 2. Mild hepatomegaly. 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
[2018-12-15] MEDS ORDERED: Sodium Chloride 0.9% 50 ML IV ONE (22:27)
[2018-12-15] MEDS ORDERED: Iohexol 300 100 ML IJ ONE (22:27)
[2018-12-15 23:50] VITALS: BP 129/82; PULSE 80; TEMP 98.8
--- NOTE | 2018-12-16 09:36 | CT ---
Date of service: 12/15/2018 PROCEDURE: CT Abdomen and Pelvis with contrast HISTORY: Left lower quadrant pain COMPARISON: None available. TECHNIQUE: CT scan of the abdomen and pelvis was performed after administration of intravenous contrast. Oral contrast was not administered. Coronal and sagittal reformatted images were obtained. Contrast dose: 95 mL Omnipaque 300 Radiation dose: Total exam DLP = 688.14 mGy-cm. This CT exam was performed using one or more of the following dose reduction techniques: Automated exposure control, adjustment of the mA and/or kV according to patient size, and/or use of iterative reconstruction technique. FINDINGS: LOWER THORAX: The visualized lungs are clear. LIVER: Mild hepatomegaly and fatty liver. Normal homogeneous enhancement. No gross lesion or ductal dilatation. GALLBLADDER AND BILE DUCTS: Well distended. No calcified gallstones, wall thickening or pericholecystic fluid. PANCREAS: Normal in size with homogeneous enhancement. No gross lesion or ductal dilatation. SPLEEN: Normal in size and appearance. ADRENALS: No discrete nodule. KIDNEYS AND URETERS: Normal in size with homogeneous enhancement. No hydronephrosis. No solid mass. VASCULATURE: No aortic aneurysm. There are no aortic atherosclerotic calcifications or mural plaque present. BOWEL: Evaluation of the bowel is limited in the absence of oral contrast. The proximal small bowel loops are normal in caliber. There are fluid-filled prominent mid small bowel loops. The colon is grossly normal in appearance. No bowel wall thickening or obstruction. APPENDIX: Normal appendix. PERITONEUM: No free fluid. No free air. LYMPH NODES: No enlarged lymph nodes. BLADDER: Well distended and normal in appearance. REPRODUCTIVE: Evaluation of the pelvis is limited due to extensive streak artifacts from left hip arthroplasty. The uterus is normal in size. BONES: No acute fracture. Within normal limits for the patient's age. Status post left hip arthroplasty. OTHER FINDINGS: There is a small sliding hiatal. IMPRESSION: Fluid-filled prominent mid small bowel loops could represent nonspecific acute infectious/inflammatory enteritis in the appropriate clinical setting. No evidence for bowel obstruction. Mild hepatomegaly and fatty liver. A preliminary report was provided by [facility].
--- NOTE | 2018-12-16 10:14 | US ---
Date of service: 12/15/2018 HISTORY: Left adnexal tenderness COMPARISON: None. TECHNIQUE: Transvaginal pelvic ultrasound was performed. FINDINGS: UTERUS: Measures 9.6 x 4.6 x 5.3 cm. Anteverted and normal in size. There is a 2.1 x 1.1 x 2.4 cm intramural anterior fundal fibroid. ENDOMETRIUM: Measures 15 mm in diameter. Unremarkable. CERVIX: There is a 9 x 9 x 12 mm complicated nabothian in cyst in the anterior cervical wall. RIGHT OVARY: Measures 2.8 x 1.4 x 2.3 cm. No solid mass. Normal flow. LEFT OVARY: Measures 2.4 x 1.4 x 2.4 cm. No solid mass. Normal flow. FREE FLUID: No significant free fluid noted. OTHER FINDINGS: None. IMPRESSION: 1. 2.1 x 2.4 cm anterior wall intramural fundal fibroid. 2. 12 mm complicated nabothian cyst in the anterior cervical wall. A preliminary report was provided by [employer].
--- NOTE | 2018-12-16 15:19 | RAD ---
Date of service: 12/15/2018 PROCEDURE: Radiographs of the Lumbar Spine. HISTORY: BACK PAIN COMPARISON: No prior. TECHNIQUE: 5 views obtained. FINDINGS: BONES: Normal lumbar lordosis. No fracture or spondylolisthesis identified. DISC SPACES: Unremarkable. OTHER FINDINGS: Incidental note is made of left total hip replacement. IMPRESSION: Unremarkable lumbar spine radiographs. No fracture or spondylolisthesis identified. Incidental left hip total joint replacement.
== END 2018-12-16 | disposition home or self-care (01) ==
LOC: H.ER 15:26
DX: N76.0 Acute vaginitis (principal); M54.5 Low back pain; R10.32 Left lower quadrant pain; M06.9 Rheumatoid arthritis, unspecified; M32.9 Systemic lupus erythematosus, unspecified; Z88.0 Allergy status to penicillin
CPT/HCPCS: 72100; 74177; 76830; 80053; 81003; 81025; 83690; 85025; 87086; 87491; 87591; 96374; 99283; J1885; Q9967